=== PATIENT | male | born 1980 | race Hispanic/Latino ===

== ENCOUNTER 2019-04-01 11:34 | Emergency (ER) | payer SELFPAY ==
--- NOTE | 2019-04-01 12:31 | RAD ---
EXAM: Fingers left hand: 3 views fourth finger is evaluated. INDICATIONS: Injury COMPARISON: None. FINDINGS: No evidence of fracture. No evidence of dislocation. Soft tissue swelling distally. IMPRESSION: No acute osseous abnormality
== END 2019-04-01 12:39 | disposition home or self-care (01) ==
LOC: MADERS 11:34
DX: S60.121A Contusion of right index finger with damage to nail, initial encounter (principal); F17.210 Nicotine dependence, cigarettes, uncomplicated; W22.8XXA Striking against or struck by other objects, initial encounter
CPT/HCPCS: 11740